=== PATIENT | female | born 1980 | race Caucasian/White ===

== ENCOUNTER 2017-08-20 17:16 | Emergency (ER) | payer MEDICAID ==
[~2017-08-20] VITALS: Ht 160 cm; Wt 67.2 kg
[2017-08-20 17:38] VITALS: BP 114/74; Ht 160 cm; Wt 67.2 kg
== END 2017-08-20 18:11 | disposition home or self-care (01) ==
LOC: ED 17:16
DX: T63.301A Toxic effect of unspecified spider venom, accidental (unintentional), initial encounter (principal); R19.04 Left lower quadrant abdominal swelling, mass and lump; R21 Rash and other nonspecific skin eruption; R10.32 Left lower quadrant pain; Y92.89 Other specified places as the place of occurrence of the external cause; Z88.0 Allergy status to penicillin

== ENCOUNTER 2018-05-29 15:08 | Emergency (ER) | payer BC ==
[~2018-05-29] VITALS: Ht 157.5 cm; Wt 69.1 kg
[2018-05-29 15:22] VITALS: Ht 157.5 cm; Wt 69.1 kg
[2018-05-29 19:30] VITALS: BP 108/71
== END 2018-05-29 19:30 | disposition home or self-care (01) ==
LOC: ED 15:08
DX: R51 Headache (principal); R42 Dizziness and giddiness; R11.10 Vomiting, unspecified; M54.5 Low back pain; M51.9 Unspecified thoracic, thoracolumbar and lumbosacral intervertebral disc disorder; J45.909 Unspecified asthma, uncomplicated; Z88.0 Allergy status to penicillin; Z98.890 Other specified postprocedural states
CPT/HCPCS: J1885; J2765